=== PATIENT | female | born 1955 | race Caucasian/White ===

== ENCOUNTER 2023-02-22 17:24 | Emergency (ER) | payer MEDICARE ==
[2023-02-22] MEDS ORDERED: Tranexamic Acid 1,000 MG/10 ML Vial TOP ONE (18:00)
== END 2023-02-22 18:32 | disposition home or self-care (01) ==
LOC: DL.ED 17:24
DX: R04.0 Epistaxis (principal)
CPT/HCPCS: 30901; 99282; 99283; J3490